=== PATIENT | male | born 1960 | race Caucasian/White ===

== ENCOUNTER → 2023-12-08 06:26 | Outpatient (REF) | payer BC, SELFPAY ==
[2023-12-08 07:57] LABS: HDL Cholesterol 50 mg/dl; LDL Cholesterol, Calculated 63 mg/dl; Total Cholesterol 121 mg/dl (50-199); Triglyceride 44 mg/dl (10-149); Very Low Density Lipoprotein 8 mg/dl (0-30)
[2023-12-08 08:24] LABS: PSA, Total - Diagnostic < 0.06 ng/ml (0.0-4.0)
== END ==
LOC: REG 06:26
PROVIDERS: ATTENDING PHYSICIAN Internal Medicine; FAMILY PHYSICIAN Specialist
DX: C61 Malignant neoplasm of prostate (principal); R97.20 Elevated prostate specific antigen [PSA]; R53.83 Other fatigue; E78.5 Hyperlipidemia, unspecified; Z00.00 Encounter for general adult medical examination without abnormal findings
CPT/HCPCS: 36415; 80061; 84153

== ENCOUNTER → 2024-03-21 06:51 | Outpatient (REF) | payer BC, SELFPAY ==
[2024-03-21 09:21] LABS: PSA, Total - Diagnostic < 0.06 ng/ml (0.0-4.0)
== END ==
LOC: REG 06:51
PROVIDERS: ATTENDING PHYSICIAN Specialist; FAMILY PHYSICIAN Internal Medicine
DX: C61 Malignant neoplasm of prostate (principal)
CPT/HCPCS: 36415; 84153

== ENCOUNTER → 2024-08-18 07:24 | Outpatient (REF) | payer BC, SELFPAY ==
[2024-08-18 09:28] LABS: PSA, Total - Diagnostic < 0.06 ng/ml (0.0-4.0); TSH 1.07 uIU/ml (0.47-4.68)
== END ==
LOC: REG 07:24
PROVIDERS: ATTENDING PHYSICIAN Internal Medicine; FAMILY PHYSICIAN Specialist
DX: R53.83 Other fatigue (principal); C61 Malignant neoplasm of prostate
CPT/HCPCS: 36415; 84153; 84443

== ENCOUNTER 2025-03-10 06:25 | Day surgery (SDC) | payer BC, SELFPAY | END 2025-03-10 09:16 | disposition home or self-care (01) | LOC: GI 06:25 | PROVIDERS: ATTENDING PHYSICIAN Internal Medicine Gastroenterology | DX: Z12.11 Encounter for screening for malignant neoplasm of colon (principal); K64.8 Other hemorrhoids; D12.2 Benign neoplasm of ascending colon; D12.3 Benign neoplasm of transverse colon; K62.1 Rectal polyp | CPT/HCPCS: 45385; 45380; 88305 ==

== ENCOUNTER → 2025-03-10 09:22 | Outpatient (REF) | payer BC, SELFPAY | LOC: RAD 09:22 | PROVIDERS: ATTENDING PHYSICIAN Nurse Practitioner; FAMILY PHYSICIAN Internal Medicine | DX: M54.32 Sciatica, left side (principal) | CPT/HCPCS: 72110; 73502 ==

== ENCOUNTER → 2025-05-09 07:25 | Outpatient (REF) | payer BC, SELFPAY ==
[2025-05-09 09:19] LABS: HDL Cholesterol 57 mg/dl; LDL Cholesterol, Calculated 66 mg/dl; Very Low Density Lipoprotein 9 mg/dl (0-30)
[2025-05-09 09:44] LABS: PSA, Total - Screen < 0.06 ng/ml (0.0-4.0)
== END ==
LOC: REG 07:25
PROVIDERS: ATTENDING PHYSICIAN Internal Medicine
DX: C61 Malignant neoplasm of prostate (principal); R53.83 Other fatigue; R97.20 Elevated prostate specific antigen [PSA]
CPT/HCPCS: 36415; 80061; G0103